=== PATIENT | female | born 1970 | race Caucasian/White ===

== ENCOUNTER 2018-01-15 17:11 | Emergency (ER) | payer OTHER ==
[~2018-01-15] VITALS: Ht 170.2 cm; Wt 70.8 kg
[2018-01-15] MEDS ORDERED: CYTOMEL25 MCG (18:11)
[2018-01-15] MEDS ORDERED: SYNTHROID112 MCG (18:11)
[2018-01-15] MEDS ORDERED: NORFLEX100MG PO (20:05)
[2018-01-15] MEDS ORDERED: NAPR500T14 PO (20:05)
== END 2018-01-15 20:17 | disposition home or self-care (01) ==
LOC: ER 17:11
DX: S30.0XXA Contusion of lower back and pelvis, initial encounter (principal); S40.012A Contusion of left shoulder, initial encounter; V49.9XXA Car occupant (driver) (passenger) injured in unspecified traffic accident, initial encounter; Y93.89 Activity, other specified; Y92.488 Other paved roadways as the place of occurrence of the external cause; Y99.8 Other external cause status